=== PATIENT | male | born 1945 | race Caucasian/White ===

== ENCOUNTER 2016-10-13 16:44 | Emergency (ER) | payer OTHER ==
[~2016-10-13] VITALS: Ht 188 cm; Wt 117.9 kg
[~2016-10-13 16:44] MED LIST: APAP/HYDROCODON1 T13 PO; BG MC; COL100 PO; COZ25 PO; ECO81 PO; GLU500 PO; NIT0.4 SL; PLA75 PO; PRI20 PO; THERAGRAN-M1 TA4 PO; ZOC20 PO
[2016-10-13 18:03] LABS: BASOPHIL % 0.4 % (0-2); PLATELET COUNT 253 x10^3mcL (130-400); RED CELL DISTRIBUTION WIDTH 13.5 % (11.5-14.5)
[2016-10-13 18:15] LABS: CARBON DIOXIDE 25.3 mmol/L (21-32); CHLORIDE SERUM 105 mmol/L (98-107); CREATININE SERUM 1.2 mg/dL (0.7-1.3); GFR1 > 60 mL/min; GLUCOSE SERUM 150 mg/dL (74-106); SODIUM SERUM 139 mmol/L (136-145)
[2016-10-13 18:19] LABS: ALKALINE PHOSPHATASE 77 U/L (46-116); ALT/SGPT 28 U/L (16-63); AST/SGOT 19 U/L (15-37); BILIRUBIN TOTAL 0.4 mg/dL (0.20-1.00); PHOSPHOROUS 2.7 mg/dL (2.5-4.9); URIC ACID 4.6 mg/dL (3.5-7.2)
[2016-10-13 18:21] LABS: CHOLESTEROL 68 mg/dL (<200); HDL CHOLESTEROL 34 mg/dL (40-60); TOTAL PROTEIN, SERUM 5.7 g/dL (6.4-8.2)
[2016-10-13 19:45] VITALS: BP 87/46
== END 2016-10-13 19:45 | disposition other institution (70) ==
LOC: ED 16:44
PROVIDERS: Emergency Medicine
DX: F10.129 Alcohol abuse with intoxication, unspecified (principal); I10 Essential (primary) hypertension; I25.10 Atherosclerotic heart disease of native coronary artery without angina pectoris; E11.9 Type 2 diabetes mellitus without complications
CPT/HCPCS: 83880; G0480; J7030

== ENCOUNTER 2016-10-13 16:44 | Emergency (ER) | payer OTHER | END 2016-10-13 19:45 | disposition other institution (70) | LOC: ED 16:44 | DX: Z02.89 Encounter for other administrative examinations (principal) ==

== ENCOUNTER 2018-10-05 15:33 | Emergency (ER) | payer OTHER ==
[~2018-10-05] VITALS: Ht 190.5 cm; Wt 97.3 kg
[2018-10-05 15:37] VITALS: Ht 190.5 cm; Wt 97.3 kg
[2018-10-05 17:08] LABS: BASOPHIL % 0.1 % (0-2); PLATELET COUNT 339 x10^3mcL (130-400); RED CELL DISTRIBUTION WIDTH 14.2 % (11.5-14.5)
[2018-10-05 17:16] LABS: CALCIUM 8.7 mg/dL (8.5-10.1); CARBON DIOXIDE 29.2 mmol/L (21-32); CHLORIDE SERUM 98 mmol/L (98-107); CREATININE SERUM 1.2 mg/dL (0.7-1.3); GLUCOSE SERUM 247 mg/dL (74-106); POTASSIUM SERUM 4.2 mmol/L (3.5-5.1); SODIUM SERUM 134 mmol/L (136-145)
[2018-10-05 17:20] LABS: ALBUMIN 3.8 g/dL (3.4-5.0); ALKALINE PHOSPHATASE 70 U/L (46-116); ALT/SGPT 24 U/L (16-63); AST/SGOT 22 U/L (15-37); BILIRUBIN TOTAL 0.91 mg/dL (0.20-1.00); TOTAL PROTEIN, SERUM 7.3 g/dL (6.4-8.2)
[2018-10-05 18:48] VITALS: BP 137/83
== END 2018-10-05 19:18 | disposition home or self-care (01) ==
LOC: ED 15:33
PROVIDERS: Emergency Medicine
DX: R10.32 Left lower quadrant pain (principal); I10 Essential (primary) hypertension; E11.9 Type 2 diabetes mellitus without complications; Z95.1 Presence of aortocoronary bypass graft
CPT/HCPCS: 36415

== ENCOUNTER 2018-10-19 14:05 | Inpatient (IN) | payer OTHER ==
[~2018-10-19] VITALS: Ht 188 cm; Wt 93.0 kg
--- NOTE | 2018-10-19 14:18 | NUR ---
PT AMBULATED OUT TO LOBBY WITH NAD. BREATHING EVEN AND UNLABORED. EKG DONE AND SHOWN TO
--- NOTE | 2018-10-19 14:52 | NUR ---
PT IN ED FOR LEFT SIDED CP AND LUQ PAIN. PER PT WAS SEEN HERE RECENTLY AND DX WITH GALLSTONES. PT STS VOMITTING YESTERDAY AND 1 EPISODE OF VOMITTING TODAY. 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
[2018-10-19 16:30] LABS: BASOPHIL % 0.7 % (0-2); PLATELET COUNT 345 x10^3mcL (130-400); RED CELL DISTRIBUTION WIDTH 13.8 % (11.5-14.5)
--- NOTE | 2018-10-19 16:36 | NUR ---
PT OFF OF UNIT TO CT SCAN VIA WHEELCHAIR.
[2018-10-19 16:41] LABS: CALCIUM 8.9 mg/dL (8.5-10.1); CARBON DIOXIDE 26.6 mmol/L (21-32); CHLORIDE SERUM 100 mmol/L (98-107); GLUCOSE SERUM 184 mg/dL (74-106); POTASSIUM SERUM 3.8 mmol/L (3.5-5.1); SODIUM SERUM 137 mmol/L (136-145)
[2018-10-19 16:45] LABS: ALBUMIN 3.6 g/dL (3.4-5.0); ALKALINE PHOSPHATASE 66 U/L (46-116); ALT/SGPT 20 U/L (16-63); AMYLASE 26 U/L (25-115); AST/SGOT 22 U/L (15-37); BILIRUBIN TOTAL 0.8 mg/dL (0.20-1.00); HDL CHOLESTEROL 47 mg/dL (40-60); LIPASE 32 IU/L (73-393); TOTAL PROTEIN, SERUM 7.1 g/dL (6.4-8.2)
[2018-10-19 16:46] LABS: CHOLESTEROL 111 mg/dL (<200)
--- NOTE | 2018-10-19 16:49 | NUR ---
PT WHEELED BACK FROM CT WITHOUT INCIDENCE.
--- NOTE | 2018-10-19 17:31 | NUR ---
PT AMBULATORY TO AND FROM BATHROOM WITH STEADY GAIT, BACK IN ED GURNEY IN POSITION OF COMFORT, A/O X4, RESPS EVEN AND UNLABORED, NO S/S OF DISTRESS NOTED. AT BEDSIDE.
--- NOTE | 2018-10-19 18:43 | NUR ---
PT UNABLE TO RECALL HOME MEDS.
--- NOTE | 2018-10-19 18:46 | NUR ---
PT MEDICATED WITH LASIX 80MG SLOW IVP PER MD ORDER.
--- NOTE | 2018-10-19 18:56 | NUR ---
REPORT CALLED TO LYDIA RN, PT TO BE ADMITTED TO TELE ROOM 225B. PT IN NO DISTRESS.
[2018-10-19 19:16] LABS: UA SPECIFIC GRAVITY 1.025 (1.005-1.035); microscopic required? YES; urine erythrocyte NEGATIVE (NEGATIVE)
[2018-10-19 19:20] LABS: MAGNESIUM 1.6 mg/dL (1.8-2.4)
--- NOTE | 2018-10-19 19:23 | NUR ---
RECEIVED PT FROM ED VIA [facility]ling[facility], CAME IN DUE TO CHEST PAIN. AAOX4. DENIES HEADACHE/DIZZINESS. NO SOB NOTED, LUNG SOUNDS CTA. W/ NON-PRODUCTIVE COUGH. DENIES CHEST PAIN/PRESSURE, SR W/ BBB. DENIES ABDOMINAL DISCOMFORT. VOIDS. IV SITE ON THE LFA IS PATENT AND INTACT. SIDE RAILS UPX2. CALL LIGHT ON REACH. PRIMARY NURSE BONI AT BEDSIDE FOR CONTINUITY OF CARE
[2018-10-19 19:28] LABS: T3 TOTAL 0.83 ng/mL
[2018-10-19 19:29] LABS: AMPHETAMINE QUAL UR NONE DETECTED (See below)
[2018-10-19 19:30] LABS: FREE T4 1.04 ng/dL (0.76-1.46); FREE THYROXINE INDEX 2.5 ug/dL (1.4-4.5); T4(THYROXINE) 6.2 ug/dL (4.7-13.3)
[2018-10-19 19:36] VITALS: BP 138/50
--- NOTE | 2018-10-19 19:40 | NUR ---
RECEIVED PT AT THIS TIME. PT AAOX4 DENIES HEADACHE OR DIZZINESS. BREATHING EVEN AND UNLABORED WITH NO SOB, LUNG SOUNDS CTA ON RA. TELE #18 SR W/BBB DEPRESSED ST HR 74, PT DENIES CHEST PAIN AT THIS TIME. PT AMBULATORY. IV LFA PATENT. VS STABLE. NO SIGNS OF ACUTE DISTRESS NOTED. CALL BUTTON WITHIN REACH. WILL CONTINUE TO MONITOR.
[2018-10-19 19:44] VITALS: Ht 188 cm; Wt 93.0 kg
[2018-10-19] MEDS ORDERED: METFORMIN HYD1000 M2 PO (19:56)
[2018-10-19] MEDS ORDERED: LIPITOR80 MG PO (19:57)
[2018-10-19] MEDS ORDERED: CITALOPRAM HYDR20 M1 PO (19:57)
[2018-10-19] MEDS ORDERED: GLIPIZIDE10 M2 PO (19:57)
[2018-10-19] MEDS ORDERED: ATENOLOL25 MG PO (19:58)
[2018-10-19 21:30] VITALS: BP 107/53
--- NOTE | 2018-10-20 00:18 | NUR ---
PT RESTING, BREATHING EVEN AND UNLABORED WITH NO SOB NOTED. NO SIGNS OF ACUTE DISTRESS NOTED. CALL BUTTON WITHIN REACH. WILL CONTINUE TO MONITOR.
--- NOTE | 2018-10-20 02:51 | NUR ---
PT RESTING, BREATHING EVEN AND UNLABORED NO SIGNS OF DISTRESS NOTED. CALL BUTTON WITHIN REACH. SAFETY PRECAUTIONS IN PLACE. WILL MONITOR.
[2018-10-20 05:25] VITALS: BP 111/54
--- NOTE | 2018-10-20 05:41 | NUR ---
PT RESTING, BREATHING EVEN AND UNLABORED WITH NO SIGNS OF DISTRESS. IV PATENT, SL. PT SLEPT MOST OF THE NIGHT WITH NO ACUTE DISTRESS NOTED. PT DENIES CHEST PAIN. MEDICATED PER EMAR. CALL BUTTON WITHIN REACH. WILL CONTINUE TO MONITOR AND ENDORSE CARE TO DAY SHIFT RN.
[2018-10-20 06:55] LABS: BASOPHIL % 0.5 % (0-2); PLATELET COUNT 316 x10^3mcL (130-400); RED CELL DISTRIBUTION WIDTH 13.5 % (11.5-14.5)
[2018-10-20 07:20] LABS: CARBON DIOXIDE 28.6 mmol/L (21-32); CHLORIDE SERUM 102 mmol/L (98-107); CREATININE SERUM 0.9 mg/dL (0.7-1.3); GLUCOSE SERUM 104 mg/dL (74-106); MAGNESIUM 1.6 mg/dL (1.8-2.4); POTASSIUM SERUM 3.3 mmol/L (3.5-5.1); SODIUM SERUM 140 mmol/L (136-145)
--- NOTE | 2018-10-20 07:30 | NUR ---
PATIENT RESTING IN BED. NO ACUTE DISTRESS NOTED. PATIENT DENIES SOB, PATIENT ON ROOM AIR. TELE MONITOR IN PLACE, PATIENT DENIES CHEST PAIN. PATIENT IS AMBULATORY, STEADY GATE NOTED. IV TO LEFT HAND SALINE LOCK. IV CDI, NO REDNESS, SWELLING OR PAIN NOTED. CALL LIGHT WITHIN REACH, BED IN LOW POSITION. WILL CONTINUE TO MONITOR FOR CHANGES.
--- NOTE | 2018-10-20 07:37 | NUR ---
PT AWAKE, DENIES ANY PAIN. NO SIGNS OF DISTRESS NOTED. ENDORSED CARE TO DAY SHIFT RN, ALL QUESTIONS ADDRESSED.
[2018-10-20 09:44] VITALS: BP 102/48
[2018-10-20 12:49] VITALS: BP 116/56
--- NOTE | 2018-10-20 13:30 | NUR ---
PATIENT IS UP AND AMBULATING HALLWAYS, STEADY GAIT NOTED. NO ACUTE DISTRESS NOTED, PATIENT ON ROOM AIR. PATIENT DENIES PAIN AT THIS TIME. WILL CONTINE TO MONITOR PATIENT.
--- NOTE | 2018-10-20 17:30 | NUR ---
PATIENT IS SITTING UP AND EATING DINNER, PATIENT TOLERATING MEAL. NO ACUTE DISTRESS NOTED. PATIENT DENIES PAIN. CALL LIGHT WITHIN REACH, BED IN LOW POSITION, WILL CONTINUE TO MONITOR.
[2018-10-20 18:02] VITALS: BP 103/49
--- NOTE | 2018-10-20 18:40 | NUR ---
PATIENT WAS AMBULATING HALLWAYS, TRYING TO GO HOME. PATIENT WAS REFUSING TO STAY, PATIENT STATES HE WAS NOT SEEN BY DOCTORS AND WANTS TO LEAVE. PATIENT APPEARRED CONFUSED. PATIENT WAS NOTIFIED, AWARE THAT PATIENT WANTED TO SIGN AMA. DR ESCOBAR AWARE THAT PATIENT WANTED TO LEAVE AMA. NOTIFIED DR DALLAS PATIENT WANTED TO SIGN AMA, DR DALLAS SAID IF PATIENT WANTS TO LEAVE HE CAN LEAVE. PATIENT SIGNED AMA. PATIENT TAKEN DOWN BY DENTAL PROSTHETIST. TELE MONITOR, ARMBANDS, AND IV REMOVED. PATIENT WAS TAKEN HOME BY .
== END 2018-10-20 18:40 | disposition left against medical advice (07) | DRG 205 ==
LOC: ED 14:05 → DU 18:22
PROVIDERS: Emergency Medicine; ADMIT General Practice
DX: M94.0 Chondrocostal junction syndrome [Tietze] (principal); N17.0 Acute kidney failure with tubular necrosis; I50.43 Acute on chronic combined systolic (congestive) and diastolic (congestive) heart failure; I45.2 Bifascicular block; I11.0 Hypertensive heart disease with heart failure; E11.65 Type 2 diabetes mellitus with hyperglycemia; I45.10 Unspecified right bundle-branch block; I25.118 Atherosclerotic heart disease of native coronary artery with other forms of angina pectoris; E83.42 Hypomagnesemia; E78.00 Pure hypercholesterolemia, unspecified; R80.9 Proteinuria, unspecified; I25.2 Old myocardial infarction; Z79.4 Long term (current) use of insulin; Z79.82 Long term (current) use of aspirin; Z68.26 Body mass index [BMI] 26.0-26.9, adult; Z95.1 Presence of aortocoronary bypass graft; Z95.5 Presence of coronary angioplasty implant and graft; Z87.891 Personal history of nicotine dependence; Z79.84 Long term (current) use of oral hypoglycemic drugs
CPT/HCPCS: 82962; 83880; 84439; J1940; J3475; J7050; Q0092

== ENCOUNTER 2018-11-06 18:09 | Emergency (ER) | payer OTHER ==
[~2018-11-06] VITALS: Ht 188 cm; Wt 92.1 kg
[~2018-11-06 18:09] MED LIST changes: +ATENOLOL25 MG PO; +CITALOPRAM HYDR20 M1 PO; +GLIPIZIDE10 M2 PO; +LIPITOR80 MG PO; +METFORMIN HYD1000 M2 PO
[2018-11-06 18:34] VITALS: Ht 188 cm; Wt 92.1 kg
[2018-11-06 19:30] LABS: BASOPHIL % 0.5 % (0-2); PLATELET COUNT 252 x10^3mcL (130-400); RED CELL DISTRIBUTION WIDTH 13.8 % (11.5-14.5)
[2018-11-06 19:39] LABS: CALCIUM 9.4 mg/dL (8.5-10.1); CARBON DIOXIDE 27.2 mmol/L (21-32); CHLORIDE SERUM 100 mmol/L (98-107); CREATININE SERUM 1.1 mg/dL (0.7-1.3); GLUCOSE SERUM 188 mg/dL (74-106); POTASSIUM SERUM 3.8 mmol/L (3.5-5.1); SODIUM SERUM 137 mmol/L (136-145)
[2018-11-06 19:43] LABS: ALKALINE PHOSPHATASE 68 U/L (46-116); ALT/SGPT 23 U/L (16-63); AST/SGOT 20 U/L (15-37); BILIRUBIN TOTAL 0.55 mg/dL (0.20-1.00); LIPASE 24 IU/L (73-393); TOTAL PROTEIN, SERUM 6.4 g/dL (6.4-8.2)
[2018-11-06 19:46] LABS: ALBUMIN 3.3 g/dL (3.4-5.0)
[2018-11-06 21:40] LABS: UA SPECIFIC GRAVITY >=1.030 (1.005-1.035); microscopic required? YES; urine erythrocyte 2+ (NEGATIVE)
[2018-11-06 23:15] VITALS: BP 137/57
== END 2018-11-06 23:15 | disposition home or self-care (01) ==
LOC: ED 18:09
PROVIDERS: Emergency Medicine
DX: N41.0 Acute prostatitis (principal); I10 Essential (primary) hypertension; E11.9 Type 2 diabetes mellitus without complications; R11.10 Vomiting, unspecified
CPT/HCPCS: 83880; J2405; J3010

== ENCOUNTER 2018-11-13 13:51 | Inpatient (IN) | payer OTHER ==
[~2018-11-13] VITALS: Ht 188 cm; Wt 94.3 kg
[2018-11-13 14:37] VITALS: Ht 188 cm; Wt 94.3 kg
--- NOTE | 2018-11-13 15:14 | NUR ---
MSE COMPLETED BY DR. HENSON.
--- NOTE | 2018-11-13 15:18 | NUR ---
PT DROPPED OFF AT ED BY C/O ABDOMINAL PAIN X3 DAYS. PER PT PAIN ACROSS LOWER ABDOMEN WITH NAUSEA AND VOMITING "THE LAST 3 NIGHTS" PER PT. PT A/O X4, RESPS EVEN AND UNLABORED, SKIN WARM/DRY TO TOUCH, ABDOMEN SOFT/FLAT, SLIGHTLY ROUNDED AT LOWER ABDOMEN, NO S/S OF DISTRESS NOTED.
[2018-11-13 15:33] LABS: BASOPHIL % 0.4 % (0-2); PLATELET COUNT 235 x10^3mcL (130-400); RED CELL DISTRIBUTION WIDTH 13.5 % (11.5-14.5)
--- NOTE | 2018-11-13 15:35 | NUR ---
PT AMBULATORY TO AND FROM BATHROOM WITH STEADY GAIT, BACK IN ED GURNEY IN POSITION OF COMFORT, A/O X4, RESPS EVEN AND UNLABORED, SKIN WARM/DRY TO TOUCH NO S/S OF DISTRESS NOTED.
[2018-11-13 15:39] LABS: microscopic required? NO
[2018-11-13 15:40] LABS: CALCIUM 9.1 mg/dL (8.5-10.1); CARBON DIOXIDE 35.5 mmol/L (21-32); CHLORIDE SERUM 97 mmol/L (98-107); GLUCOSE SERUM 247 mg/dL (74-106); POTASSIUM SERUM 3.7 mmol/L (3.5-5.1); SODIUM SERUM 135 mmol/L (136-145)
[2018-11-13 15:44] LABS: ALBUMIN 3.5 g/dL (3.4-5.0); ALKALINE PHOSPHATASE 66 U/L (46-116); ALT/SGPT 26 U/L (16-63); AMYLASE 28 U/L (25-115); AST/SGOT 23 U/L (15-37); BILIRUBIN TOTAL 0.5 mg/dL (0.20-1.00); LIPASE 23 IU/L (73-393); TOTAL PROTEIN, SERUM 6.8 g/dL (6.4-8.2)
[2018-11-13 15:44] LABS: UA SPECIFIC GRAVITY <=1.005 (1.005-1.035); urine erythrocyte NEGATIVE (NEGATIVE)
--- NOTE | 2018-11-13 16:18 | NUR ---
PT SITTING UP IN ED GURNEY WATCHING TV, NO S/S OF DISTRESS NOTED. CALL LIGHT WITHIN REACH.
[2018-11-13 17:35] LABS: AMPHETAMINE QUAL UR NONE DETECTED (See below)
--- NOTE | 2018-11-13 17:38 | NUR ---
DR. HENSON AT BEDSIDE DISCUSSING PLAN OF CARE WITH PT.
--- NOTE | 2018-11-13 17:44 | NUR ---
PT UNABLE TO RECALL HOME MEDS.
--- NOTE | 2018-11-13 18:13 | NUR ---
PT PROVIDED WITH DINNER TRAY. PT SITTING UP IN ED GURNEY EATING, NO DISTRESS NOTED.
--- NOTE | 2018-11-13 18:19 | NUR ---
RECEIVED REPORT FROM MICHAEL FORTE IN ED. AWAITING PATIENT ARRIVAL TO FLOOR.
--- NOTE | 2018-11-13 18:20 | NUR ---
REPORT CALLED TO KASANDRA FORTE. PT TO BE ADMITTED TO TELE ROOM 218B.
--- NOTE | 2018-11-13 18:40 | NUR ---
RECEIVED PT VIA [place] FROM E/D, ACCOMPANIED BY TRANSPORTER. PT A/A/O X 4, CALM, COOPERATIVE. AMBULATED FROM [place] TO BED WITHOUT GAIT OR BALANCE IMPAIRMENT. ON TELE # 12, SR W/ BBB AND DEPRESSED T-WAVES, HR 65, DENIES CHEST PAIN OR DISCOMFORT AT THIS TIME. NO ACUTE RESPIRATORY DISTRESS NOTED. PT W/ SCATTERED HEALING BRUISES TO BUE, AND SMALL DRIED SCAB TO LFA 1.0 CM X 1.0 CM X 0.1 CM. IV SITE TO [facility] 22G, CDI. ORIENTED PT TO ROOM, BED CONTROLS, CALL LIGHT SYSTEM. SIDE RAILS UP X 2, BED IN LOW POSITION. WILL ENDORSE TO REANNA SLAUGHTER.
[2018-11-13 19:04] VITALS: BP 148/85
--- NOTE | 2018-11-13 19:43 | NUR ---
REPORT GIVEN TO JIN FORTE. PT RESTING COMFORTABLY IN BED. ALL NEEDS MET. NO C/O CHEST PAIN, NAUSEA, DIZZINESS, SOB. IV IS PATENT AND INTACT. NO REDNESS OR PAIN. ALL QUESTIONS AND CONCERNS ADDRESSED.
--- NOTE | 2018-11-13 19:51 | NUR ---
RECEIVED PATIENT IN BED AWAKE ,ALERT AND ORIENTED WITH NO SIGN OF ACUTE DISTRESS. BREATHING EASY AND NONLABOR SATTING AT 98% RA. TELE# 12 SR WITH BBB ON MONITOR,DENIES CHESTPAIN. WITH ADMISSION ORDERS AND TO CARRY OUT. WILL CONTINUE TO MONITOR. CALL LIGHT WITHIN REACH.
[2018-11-13 22:29] VITALS: BP 133/55
--- NOTE | 2018-11-14 00:08 | NUR ---
APPEARS SLEEPING AT THIS TIME BREATHING EASYA ND NONLABOR. WILL CONTINUE TO MONITOR.
--- NOTE | 2018-11-14 05:02 | NUR ---
SLEPT AT LONG INTERVALS DENIES ABDOMINAL DISCOMFORT THE ENTIRE SHIFT. ALL NEEDS ATTENDED.
[2018-11-14 05:48] VITALS: BP 120/56
[2018-11-14 06:23] LABS: BASOPHIL % 0.7 % (0-2); PLATELET COUNT 208 x10^3mcL (130-400); RED CELL DISTRIBUTION WIDTH 13.4 % (11.5-14.5)
[2018-11-14 06:40] LABS: CALCIUM 9.3 mg/dL (8.5-10.1); CHLORIDE SERUM 100 mmol/L (98-107); CREATININE SERUM 0.8 mg/dL (0.7-1.3); GLUCOSE SERUM 108 mg/dL (74-106); HDL CHOLESTEROL 36 mg/dL (40-60); MAGNESIUM 1.7 mg/dL (1.8-2.4); PHOSPHOROUS 2.8 mg/dL (2.5-4.9); POTASSIUM SERUM 3.5 mmol/L (3.5-5.1); SODIUM SERUM 127 mmol/L (136-145); TRIGLYCERIDES 41 mg/dL (<150)
[2018-11-14 06:41] LABS: CHOLESTEROL 101 mg/dL (<200); CHOLESTEROL/HDL RATIO 2.8
--- NOTE | 2018-11-14 07:20 | NUR ---
RECEIVED PT. IN BED A/A/O X3. NO SOB, NO N/V NOTED. PT. DENIES ANY PAIN AT THIS TIME. SCD TO BLE MAINTAINED. BED IN LOW POS., CALL LIGHT WITHIN REACH. SIDE RAILS UP X3.
[2018-11-14 09:33] VITALS: BP 110/55
--- NOTE | 2018-11-14 13:50 | NUR ---
RECEIVED A PHONE CALL FROM THE [facility]. WHO STATED THAT PT. HAD A RUN OF V. TACH. OF 16 BEATS IN A ROW IN 30 SECONDS. PT. IS SITTING IN BED WATCHING TV. PT. DENIES ANY CHEST PAIN OR DISCOMFORT. DR. LAKEISHA DUNAWAY.
--- NOTE | 2018-11-14 14:00 | NUR ---
DR. WATKINS WAS MADE AWARE THAT PT. HAD A RUN OF V-TACH (16 BEATS IN A ROW IN 30 SECONDS AT 13:50). DR. WATKINS STATED " IT LOOKS LIKE SVT. I'LL SEE THE PT." NO FURTHER ORDER RECEIVED AT THIS TIME.
--- NOTE | 2018-11-14 14:10 | NUR ---
PT. IS BEING SEEN BY DR. WATKINS AT THIS TIME.
[2018-11-14 14:18] VITALS: BP 98/50
[2018-11-14] MEDS ORDERED: IMD60 PO (15:26)
[2018-11-14] MEDS ORDERED: ZES5 PO (15:27)
[2018-11-14 15:45] VITALS: BP 116/58
--- NOTE | 2018-11-14 16:00 | NUR ---
D/C HOME INSTRUCTIONS GIVEN TO PT. BY ZAHEER SEPULVEDA, TAPPER BALANCE WHEEL SCREW HOLE. IV H/L TO R AC REMOVED. TELE. MONITOR #12 REMOVED AND RETURNED TO TELE. MONITOR STATION.
--- NOTE | 2018-11-14 16:15 | NUR ---
PT. IS BEING DISCHARGED IN STABLE CONDITION VIA WHEELCHAIR. ALL BELONGINGS SENT HOME WITH PT. UPON DISCHARGE.
== END 2018-11-14 16:22 | disposition home or self-care (01) | DRG 391 ==
LOC: ED 13:51 → DU 16:55
PROVIDERS: Emergency Medicine; ADMIT Internal Medicine
DX: K21.9 Gastro-esophageal reflux disease without esophagitis (principal); I50.23 Acute on chronic systolic (congestive) heart failure; E87.1 Hypo-osmolality and hyponatremia; I11.0 Hypertensive heart disease with heart failure; E11.65 Type 2 diabetes mellitus with hyperglycemia; E78.5 Hyperlipidemia, unspecified; I25.2 Old myocardial infarction; Z68.26 Body mass index [BMI] 26.0-26.9, adult; Z95.1 Presence of aortocoronary bypass graft; Z95.5 Presence of coronary angioplasty implant and graft; Z79.84 Long term (current) use of oral hypoglycemic drugs
CPT/HCPCS: 82962; 83880; Q0092

== ENCOUNTER 2018-12-02 19:53 | Emergency (ER) | payer OTHER ==
[~2018-12-02] VITALS: Ht 188 cm; Wt 92.1 kg
[~2018-12-02 19:53] MED LIST changes: +IMD60 PO; +ZES5 PO
[2018-12-02 20:15] VITALS: Ht 188 cm; Wt 92.1 kg
[2018-12-02 22:25] VITALS: BP 116/54
== END 2018-12-02 22:25 | disposition home or self-care (01) ==
LOC: ED 19:53
DX: S20.212A Contusion of left front wall of thorax, initial encounter (principal); S39.91XA Unspecified injury of abdomen, initial encounter; I10 Essential (primary) hypertension; E11.9 Type 2 diabetes mellitus without complications; Z98.890 Other specified postprocedural states; W11.XXXA Fall on and from ladder, initial encounter; Y93.89 Activity, other specified; Y92.89 Other specified places as the place of occurrence of the external cause; Y99.8 Other external cause status
CPT/HCPCS: Q0092

== ENCOUNTER 2018-12-14 18:24 | Inpatient (IN) | payer OTHER ==
[~2018-12-14] VITALS: Ht 190.5 cm; Wt 89.4 kg
[2018-12-14 18:29] VITALS: Ht 190.5 cm; Wt 89.4 kg
--- NOTE | 2018-12-14 18:46 | NUR ---
DR DODGE AT BEDSIDE FOR MSE.
--- NOTE | 2018-12-14 18:46 | NUR ---
PT STS HIS HALTER MONITOR IS BEING "MONITORED BY RASHI GABRIEL".
--- NOTE | 2018-12-14 19:11 | NUR ---
PT REFUSED NITRO AT THIS TIME.
--- NOTE | 2018-12-14 19:11 | NUR ---
PT BIB C/P L LOWER CP, POSSIBLE LUQ ABD PAIN, UPON ASSESSING PT POINTING TO L LOWER RIB REGION REPORTS ONSET OF PAIN WAS X1 DAY AGO. DENIES TRAUMA. ON FULL CM, NAD NOTED, NON PITTING EDEMA NOTED TO LATISHA LOWER EXTREMETIES. IN POSITION OF COMFORT.
[2018-12-14 19:17] LABS: BASOPHIL % 0.7 % (0-2); PLATELET COUNT 274 x10^3mcL (130-400); RED CELL DISTRIBUTION WIDTH 14.3 % (11.5-14.5)
--- NOTE | 2018-12-14 19:18 | NUR ---
PER PT'S , PT HAS HX OF DEMENTIA. PT'S AT BEDSIDE WITH PT.
--- NOTE | 2018-12-14 19:20 | NUR ---
REPORT RECEIVED FROM PHILLIP FORTE. PT'S CARE ASSUMED AT THIS TIME.
--- NOTE | 2018-12-14 19:20 | NUR ---
PT AAOX4, VSS, SPEAKS IN FULL CLEAR SENTENCES, BREATHING EASY AND UNLABORED. RESTING COMFORTABLY IN BED. CONTINUES TO REPORT 6/10 L SIDE CHEST/LUQ PAIN. CONITNUES TO REFUSE NITRO AT THIS TIME. PT STS "PAIN IS NOT TOO BAD." OFFERED WARM BLANKET BUT REFUSED. DENIES FURTHER NEEDS AT THIS TIME. WILL CONTINUE TO MONITOR. REMAINS AT BEDSIDE.
[2018-12-14 19:23] LABS: CALCIUM 9.8 mg/dL (8.5-10.1); CARBON DIOXIDE 28.2 mmol/L (21-32); CHLORIDE SERUM 101 mmol/L (98-107); CREATININE SERUM 1.1 mg/dL (0.7-1.3); GLUCOSE SERUM 253 mg/dL (74-106); POTASSIUM SERUM 4.1 mmol/L (3.5-5.1); SODIUM SERUM 137 mmol/L (136-145)
[2018-12-14 19:28] LABS: ALKALINE PHOSPHATASE 72 U/L (46-116); ALT/SGPT 19 U/L (16-63); AST/SGOT 12 U/L (15-37); BILIRUBIN TOTAL 0.61 mg/dL (0.20-1.00); TOTAL PROTEIN, SERUM 7.4 g/dL (6.4-8.2)
--- NOTE | 2018-12-14 19:35 | NUR ---
PT WANTED TO AMBULATE TO BR. PT AMBULATED WITH STEADY GAIT W/O ASSISTANCE. DENIES BEING DIZZY.
--- NOTE | 2018-12-14 20:11 | NUR ---
NO CHANGE IN STATUS AT THIS TIME. PT AWAITING ADMISSION. PT GIVEN SOMETHING TO EAT.
--- NOTE | 2018-12-14 20:30 | NUR ---
PT TO BR W/ STEADY GAIT. PT REQUESTED TO BE CONTACTED SO SHE CAN POULTRY HELPER CAR KEYS. , HUMBLE, CONTACTED AT [phone], PER PT'S REQUEST AND WILL POULTRY HELPER KEYS.
--- NOTE | 2018-12-14 21:20 | NUR ---
PT BEING ADMITTED. NO CHANGE IN STATUS AT THIS TIME. RESTING COMFORTABLY IN BED WATCHING TV.
--- NOTE | 2018-12-14 22:32 | NUR ---
PT ADMITTED (TELE) - REPORT CALLED TO JASKARAN FORTE. OPPORTUNITY GIVEN TO ASK QUESTIONS. PT BEING TRANSPORTED TO FLOOR BY RN AND EMT. NO OBVIOUS SIGNS OF DISTRESS AT THIS TIME. PT'S CARE COMPLETED BY THIS RN AT THIS TIME.
[2018-12-14 22:54] VITALS: BP 137/50
--- NOTE | 2018-12-14 22:56 | NUR ---
RECEIVED PT FROM ED VIA CAROLYN. ORIENTED PT TO ROOM AND SURROUNDINGS. IV NOTED TO RAC PATENT AND INTACT. TELE 1 PLACED ON PT READING SBR. INSTRUCTED PT ON THE USE OF CALL LIGHT FOR ASSISTANCE. ENDORSED PT TO PRIMARY NURSE JASKARAN
[2018-12-14 23:04] LABS: CHOLESTEROL/HDL RATIO 3.3; PHOSPHOROUS 3.7 mg/dL (2.5-4.9)
[2018-12-14 23:11] LABS: FREE T4 0.93 ng/dL (0.76-1.46); T4(THYROXINE) 5.4 ug/dL (4.7-13.3)
--- NOTE | 2018-12-14 23:45 | NUR ---
RECEIVED PT FROM ER AAOX4, DX CHEST PAIN ACS , PT DENY CHEST PAIN STATED I'M HAVING MORE OF PALPITATIONS" , PT HAS HOLTER MONITOR ON FOR THE [PAST WEEK , PLACED PT ON TELE NUMBER ONE THAT SHOWS NSR/SB HR 58. ORIENTED PT TO ROOM CALL LIGHT WITHIN PT'S REACH , HL TO RAC INTACT FLUSHING WELL .
[2018-12-15 00:14] LABS: T3 TOTAL 0.85 ng/mL
--- NOTE | 2018-12-15 03:22 | NUR ---
PT'S IN BED WITH EYES CLOSED , TELE NSR HR 62
--- NOTE | 2018-12-15 06:19 | NUR ---
NO CHANGES OF CONDITION NOTED, ALL DUE MEDS GIVEN NO REACTION NOTED, HL INTACT , TELE NSR .PT'S AWEAKE WATCHING TV.
[2018-12-15 07:07] LABS: BASOPHIL % 0.6 % (0-2); PLATELET COUNT 251 x10^3mcL (130-400); RED CELL DISTRIBUTION WIDTH 14.1 % (11.5-14.5)
--- NOTE | 2018-12-15 07:20 | NUR ---
RECIEVED PT RESTING COMFORTABLY IN BED WITH NO C/O PAIN, DISTRESS, OR, SOB. A/O X4 WITH NO BLANKENSHIP OR DIZZINESS. PT CONNECTED TO TELE # 1, DENIES ANY CP OR PRESSURE AT THIS TIME. LUNGS CTA, NO SOB. IV TO RAC INTACT AND PATENT WITH NO REDNESS OR INFLAMMATIN. SAFETY PRECAUTIONS IN PLACE, CALL LIGHT WITHIN REACH, WILL MONITOR.
[2018-12-15 07:50] VITALS: BP 131/52
[2018-12-15 09:07] LABS: CALCIUM 9.7 mg/dL (8.5-10.1); CARBON DIOXIDE 25.9 mmol/L (21-32); CHLORIDE SERUM 106 mmol/L (98-107); GLUCOSE SERUM 197 mg/dL (74-106); POTASSIUM SERUM 4.4 mmol/L (3.5-5.1); SODIUM SERUM 141 mmol/L (136-145)
--- NOTE | 2018-12-15 11:00 | NUR ---
PT STABLE AND WALKING LAPS ON FLOOR. NO PAIN, DISTRESS, OR SOB NOTED. WILL CONTINUR MONITORING.
[2018-12-15 12:00] VITALS: BP 125/52
--- NOTE | 2018-12-15 13:15 | NUR ---
CAME IN TO CHECK ON PT AND HE VERBALLY STATED THAT "HE WENT TO GET UP AND FELL TO FLOOR NEXT TO BED LANDING ON HIS BUTT". DENIES HITTING HEAD, ASSESSED PT RIGHT AWAY, PT A/O X4, SKIN CLEAR AND INTACT WITH NO BRUISING NOTED. NO LIMITED ROM ON EXTREMITIES. NO ECCYMOSIS ON BUTTOCKS AND PT DENIES PAIN AT SITE. NOTIFIED DR GAMEZ, DR GAMEZ MADE AWARE AND NEW ORDER RECIEVED AND CARRIED OUT.
[2018-12-15 17:00] VITALS: BP 118/51
--- NOTE | 2018-12-15 17:00 | NUR ---
PT REFUSING ALL FURTHER TREATMENT AT THIS TIME. PT STATED" HE REMOVED HIS IV AND IS DONE WITH ALL THE CARE". HE STATED THAT HIS IS ON HER WAY TO PICK HIM UP. DR GAMEZ NOTIFIED AND CHARGE NURSE. IV SITE ASSESSED AND NOTED CDI WITH NO CATHETER LEFT IN SKIN SITE. PT STATES "HE THREW IV IN TRASH". DR GAMEZ STATES PT OK TO DISCHARGE, PT WILL WAIT FOR PAPERWORK BEFORE LEAVING.
--- NOTE | 2018-12-15 18:00 | NUR ---
PT GIVEN ALL DISCHARGE INSTRUCTIONS AND EDUCATION. PT VERBALIZES UNDERSTANDING. REPORTS NO PAIN, DISTRESS, OR SOB AT THIS TIME. PT LEAVING WITH AT SIDE. PT AMBULATORY WITH NO DISTRESS AT TIME OF DISCHARGE. DR GAMEZ AND CHARGE AWARE.
[2018-12-15 18:26] VITALS: BP 118/51
== END 2018-12-15 18:35 | disposition home or self-care (01) | DRG 206 ==
LOC: ED 18:24 → DU 22:15 → MU 22:33 → DU 22:41 → MU 12-15 16:53
PROVIDERS: Emergency Medicine; ADMIT General Practice
DX: M94.0 Chondrocostal junction syndrome [Tietze] (principal); I24.9 Acute ischemic heart disease, unspecified; E11.65 Type 2 diabetes mellitus with hyperglycemia; I25.5 Ischemic cardiomyopathy; D53.9 Nutritional anemia, unspecified; E78.5 Hyperlipidemia, unspecified; I25.10 Atherosclerotic heart disease of native coronary artery without angina pectoris; I10 Essential (primary) hypertension; I25.2 Old myocardial infarction; Z68.25 Body mass index [BMI] 25.0-25.9, adult; Z95.1 Presence of aortocoronary bypass graft; Z87.891 Personal history of nicotine dependence; Z79.84 Long term (current) use of oral hypoglycemic drugs; Z95.5 Presence of coronary angioplasty implant and graft
CPT/HCPCS: 82962; 83880; 84439; G0378; J7030; Q0092

== ENCOUNTER 2019-01-16 15:10 | Emergency (ER) | payer OTHER ==
[~2019-01-16] VITALS: Ht 193 cm; Wt 86.2 kg
[2019-01-16 15:21] VITALS: Ht 193 cm; Wt 86.2 kg
[2019-01-16 16:10] LABS: BASOPHIL % 0.3 % (0-2); PLATELET COUNT 344 x10^3mcL (130-400); RED CELL DISTRIBUTION WIDTH 14.2 % (11.5-14.5)
[2019-01-16 16:18] LABS: CALCIUM 9.6 mg/dL (8.5-10.1); CARBON DIOXIDE 29.2 mmol/L (21-32); CHLORIDE SERUM 104 mmol/L (98-107); GLUCOSE SERUM 198 mg/dL (74-106); POTASSIUM SERUM 4.3 mmol/L (3.5-5.1); SODIUM SERUM 140 mmol/L (136-145)
[2019-01-16 16:23] LABS: ALBUMIN 3.5 g/dL (3.4-5.0); ALKALINE PHOSPHATASE 73 U/L (46-116); ALT/SGPT 32 U/L (16-63); AST/SGOT 18 U/L (15-37); BILIRUBIN TOTAL 0.6 mg/dL (0.20-1.00); TOTAL PROTEIN, SERUM 6.7 g/dL (6.4-8.2)
[2019-01-16 19:28] VITALS: BP 136/73
== END 2019-01-16 19:28 | disposition home or self-care (01) ==
LOC: ED 15:10
PROVIDERS: Emergency Medicine
DX: S16.1XXA Strain of muscle, fascia and tendon at neck level, initial encounter (principal); S09.8XXA Other specified injuries of head, initial encounter; R53.1 Weakness; I10 Essential (primary) hypertension; E11.9 Type 2 diabetes mellitus without complications; Z98.890 Other specified postprocedural states; W18.39XA Other fall on same level, initial encounter; Y93.89 Activity, other specified; Y92.89 Other specified places as the place of occurrence of the external cause; Y99.8 Other external cause status
CPT/HCPCS: 36415

== ENCOUNTER 2019-01-24 10:38 | Emergency (ER) | payer OTHER ==
[~2019-01-24] VITALS: Ht 188 cm; Wt 86.6 kg
[2019-01-24 10:45] VITALS: Ht 188 cm; Wt 86.6 kg
[2019-01-24 11:35] LABS: BASOPHIL % 0.4 % (0-2); PLATELET COUNT 305 x10^3mcL (130-400)
[2019-01-24 11:37] LABS: RED CELL DISTRIBUTION WIDTH 14.7 % (11.5-14.5)
[2019-01-24 11:44] LABS: CALCIUM 9.5 mg/dL (8.5-10.1); CARBON DIOXIDE 25.3 mmol/L (21-32); CHLORIDE SERUM 105 mmol/L (98-107); CREATININE SERUM 1.1 mg/dL (0.7-1.3); GLUCOSE SERUM 156 mg/dL (74-106); POTASSIUM SERUM 4.2 mmol/L (3.5-5.1); SODIUM SERUM 139 mmol/L (136-145)
[2019-01-24 11:48] LABS: ALBUMIN 3.4 g/dL (3.4-5.0); ALKALINE PHOSPHATASE 67 U/L (46-116); ALT/SGPT 28 U/L (16-63); AST/SGOT 24 U/L (15-37); BILIRUBIN TOTAL 0.61 mg/dL (0.20-1.00); TOTAL PROTEIN, SERUM 6.4 g/dL (6.4-8.2)
[2019-01-24 15:14] VITALS: BP 102/55
== END 2019-01-24 15:14 | disposition home or self-care (01) ==
LOC: ED 10:38
PROVIDERS: Emergency Medicine
DX: R07.2 Precordial pain (principal); I10 Essential (primary) hypertension; E11.9 Type 2 diabetes mellitus without complications; Z98.890 Other specified postprocedural states
CPT/HCPCS: 36415; 83880; Q0092

== ENCOUNTER 2019-02-01 13:47 | Emergency (ER) | payer OTHER ==
[~2019-02-01] VITALS: Ht 188 cm; Wt 87.1 kg
[2019-02-01 14:00] VITALS: BP 118/51; Ht 188 cm; Wt 87.1 kg
[2019-02-01 14:48] LABS: microscopic required? NO
[2019-02-01 14:51] LABS: BASOPHIL % 0.4 % (0-2); PLATELET COUNT 312 x10^3mcL (130-400)
[2019-02-01 14:52] LABS: UA SPECIFIC GRAVITY 1.025 (1.005-1.035); urine erythrocyte NEGATIVE (NEGATIVE)
[2019-02-01 14:55] LABS: RED CELL DISTRIBUTION WIDTH 14.8 % (11.5-14.5)
[2019-02-01 15:00] LABS: AMPHETAMINE QUAL UR NONE DETECTED (See below)
[2019-02-01 15:08] LABS: CALCIUM 9.2 mg/dL (8.5-10.1); CARBON DIOXIDE 23.2 mmol/L (21-32); CHLORIDE SERUM 106 mmol/L (98-107); CREATININE SERUM 1.1 mg/dL (0.7-1.3); GLUCOSE SERUM 167 mg/dL (74-106); SODIUM SERUM 140 mmol/L (136-145)
[2019-02-01 15:12] LABS: ALBUMIN 3.4 g/dL (3.4-5.0); ALKALINE PHOSPHATASE 75 U/L (46-116); ALT/SGPT 30 U/L (16-63); AST/SGOT 18 U/L (15-37); BILIRUBIN TOTAL 0.65 mg/dL (0.20-1.00); CHOLESTEROL 125 mg/dL (<200); HDL CHOLESTEROL 47 mg/dL (40-60); LIPASE 17 IU/L (73-393); MAGNESIUM 1.9 mg/dL (1.8-2.4); T4(THYROXINE) 4.9 ug/dL (4.7-13.3); TOTAL PROTEIN, SERUM 6.7 g/dL (6.4-8.2)
== END 2019-02-01 17:14 | disposition home or self-care (01) ==
LOC: ED 13:47
PROVIDERS: Emergency Medicine
DX: S50.811A Abrasion of right forearm, initial encounter (principal); S40.022D Contusion of left upper arm, subsequent encounter; S40.021D Contusion of right upper arm, subsequent encounter; F03.90 Unspecified dementia, unspecified severity, without behavioral disturbance, psychotic disturbance, mood disturbance, and anxiety; D64.9 Anemia, unspecified; I10 Essential (primary) hypertension; I45.10 Unspecified right bundle-branch block; Z95.1 Presence of aortocoronary bypass graft; W18.39XA Other fall on same level, initial encounter; Y93.89 Activity, other specified; Y92.89 Other specified places as the place of occurrence of the external cause; Y99.8 Other external cause status
CPT/HCPCS: 36415; 82962; G0480